=== PATIENT | male | born 1985 ===

== ENCOUNTER 2022-10-06 13:23 | Emergency (ER) | payer BC ==
[2022-10-06] MEDS ORDERED: Sodium Chloride 0.9% 10 ML Syringe FLUSH PRN (15:36)
[2022-10-06] MEDS ORDERED: Ondansetron 4 MG/2 ML SDV IVPUSH ONE (15:36)
[2022-10-06] MEDS ORDERED: Sodium Chloride 0.9% 1,000 ML IV ONE ×2 (15:36→17:40)
[2022-10-06] MEDS ORDERED: Sodium Chloride 0.9% 2.5 ML Syringe FLUSH PRN (15:36)
[2022-10-06] MEDS ORDERED: Alum Hydro/Mag Hydro/Simeth XS 15 ML, Lidocaine 2% 5 ML PO ONE ×2 (16:01)
[2022-10-06 16:31] LABS: CARBON DIOXIDE,CO2 25.8 mmol/L (21.0-32.0); POTASSIUM,K 4.3 mmol/L (3.5-5.1)
[2022-10-06] MEDS ORDERED: LORazepam 2 MG/ML SDV IVPUSH ONE (17:40)
[2022-10-06] MEDS ORDERED: Acetaminophen 325 MG Tab PO ONE (18:20)
== END 2022-10-06 19:12 | disposition home or self-care (01) ==
LOC: MW.ED 13:23
DX: E86.0 Dehydration (principal); D58.0 Hereditary spherocytosis; F10.99 Alcohol use, unspecified with unspecified alcohol-induced disorder; Z88.0 Allergy status to penicillin
CPT/HCPCS: 36415; 80053; 83690; 83735; 84484; 85025; 93005; 96361; 96374; 96375; 99284; A9270; J2060; J2405; J3490; J7030; 93010